=== PATIENT | male | born 1985 | race Caucasian/White ===

== ENCOUNTER 2021-07-28 11:27 | Emergency (ER) | payer MEDICAID, SELFPAY ==
[2021-07-28 11:28] VITALS: BP 191/93; PULSE 85; RESP 16; TEMP 36.3; O2SAT 97; BMI 48.7
--- NOTE | 2021-07-28 11:46 | EDS_ITS ---
HPI History of Present Illness Chief Complaint: Hyperglycemia Informant: patient Narrative Narrative: 36-year-old male presenting to the emergency department with chief complaint of hyperglycemia. Patient states that he is not a diabetic but he went for a job interview today and they checked his blood sugar and it was over 400. He notes increased thirst and frequent urination particularly at night. He denies any weight gain weight loss. He states he has had hypertension intermittently in the past. He is an occasional smoker. He does not have a primary care doctor as he just moved to town. PFSH PFS Medical History no medical history no medical history Home Medications lisinopril 20 mg PO DAILY #30 tab 07/28/21 [Rx Last Taken Unknown] metformin 500 mg PO BID #60 tab 07/28/21 [Rx Last Taken Unknown] Allergy/AdvReac Type Severity Reaction Status Date / Time No Known Allergies Allergy Verified 07/28/21 11:29 Surgical History (Updated 07/28/21 @ 11:[address] Jelani Zamudio DO) H/O shoulder surgery Social History (Updated 07/28/21 @ 11:[address] Jelani Zamudio DO) Smoking Status: Current some day smoker tobacco type: cigarettes substance use type: does not use ROS ROS ED Constitutional Constitutional ED: Denies chills, fever(s) or weight loss Eyes Eyes: Denies change in vision or diplopia ENT ENT ED: Denies ear pain, rhinorrhea or sore throat Cardiovascular Cardiovascular: Denies chest pain, orthopnea, palpitations or racing heartbeat Respiratory/Chest Respiratory/Chest: Denies cough, dyspnea or orthopnea Gastrointestinal Gastrointestinal: Denies abdominal pain, diarrhea, nausea or vomiting Genitourinary Genitourinary ED: Reports urinary frequency; Denies dysuria or hematuria Musculoskeletal Musculoskeletal: Denies arthralgias or myalgias Integumentary Denies abscess or rash Neurologic Neurologic: Denies headache(s) or weakness Psychiatric Psychiatric: Denies anxiety, depression, suicidal ideation or suicidal thoughts Endocrine Endocrinology: Reports polydipsia and polyuria; Denies polyphagia Allergic/Immunologic Allergic/Immunologic ED: Denies mouth swelling, tongue swelling or urticaria EXAM Physical Exam Const Vital Signs: 07/28/21 11:28 07/28/21 12:10 07/28/21 12:44 Temperature 97.4 F L Temperature Source Temporal Pulse Rate 85 Respiratory Rate 16 Respiratory Effort Normal Non-Labored Respiratory Pattern Normal Blood Pressure 191/93 H 170/86 H Blood Pressure Mean 125 114 Pulse Ox 97 Oxygen Delivery Method Room Air 07/28/21 12:51 Temperature Temperature Source Pulse Rate Respiratory Rate Respiratory Effort Respiratory Pattern Blood Pressure 135/90 H Blood Pressure Mean 105 Pulse Ox Oxygen Delivery Method Positive well nourished, well developed and obese General Appearance ED: well developed Nutritional Appearance: obese HEENT Reports normocephalic, head/scalp atraumatic, TM's clear and moist mucous membranes Negative for trauma Tympanic Membrane ED: Yes TM's clear Eyes PERRL and EOMs intact bilaterally Neck no lymphadenopathy, supple and no JVD Resp normal respiratory effort and clear to auscultation bilaterally Cardio regular rate, regular rhythm and no murmurs GI normal to inspection, nondistended, normoactive bowel sounds and non-tender Palpation: soft Back/Spine no CVA tenderness and normal ROM Extremity normal to inspection General Extremety ED: Negative for edema General Extremity: Negative for edema Neuro oriented x3 and CN's II-XII intact bilaterally Sensorium / Orientation: alert Motor Exam: strength 5/5 throughout Psych mental status grossly normal Mood & Affect: Negative for depressed or tearful Skin no rashes or lesions noted and no wounds MDM MDM MDM Narrative Medical decision making narrative: Anion gap is 6 BUN of 9 creatinine 0.74. His glucose is 383 liver enzymes slightly elevated with an ALT of 79 AST is 61 alk phos of 122. His hemoglobin A1c is 11. Urinalysis shows glucose but no infection and no proteinuria. Patient's blood pressures have remained elevated which is consistent with what he has told me about his prior readings. Patient will be started on Metformin 500 mg twice a day as well as lisinopril 20 mg twice a day given at least a months worth. Advised him that he will need to follow-up with primary care. Dr. Cary is next up on the list. Lab Data Attestation: I reviewed the patient's lab results. Labs: Laboratory Results - last 24 hr 07/28/21 07/28/21 07/28/21 12:05 12:05 12:05 WBC 7.6 RBC 5.01 Hgb 15.1 Hct 44.2 MCV 88.2 MCH 30.1 MCHC 34.2 RDW Std Deviation 42.5 RDW Coeff of Federico 13.2 Plt Count 186 MPV 10.8 Immature Gran % (Auto) 0.400 Neut % (Auto) 50.1 Lymph % (Auto) 40.9 [place] % (Auto) 6.2 Eos % (Auto) 2.1 Baso % (Auto) 0.3 Absolute Neuts (auto) 3.8 Absolute Lymphs (auto) 3.10 Nucleated RBC % 0 Sodium 133 L Potassium 4.2 Chloride 97 L Carbon Dioxide 30.0 Anion Gap 6 BUN 9 Creatinine 0.74 Estim Creat Clear Calc 161.99 Est GFR (MDRD) Af Amer 156 Est GFR (MDRD) Non-Af 129 BUN/Creatinine Ratio 12.2 Glucose 383 H Hemoglobin A1c 11.0 H Calcium 8.7 Total Bilirubin 0.40 Direct Bilirubin 0.11 AST 61 H ALT 79 H Alkaline Phosphatase 122 H Total Protein 7.6 Albumin 3.0 L Globulin 4.6 H Amylase 27 Lipase 121 Urine Color Urine Clarity Urine pH Ur Specific [place] Urine Protein Urine Glucose (UA) Urine Ketones Urine Occult Blood Urine Nitrite Urine Bilirubin Urine Urobilinogen Ur Leukocyte Esterase Urine RBC Urine WBC Ur Squamous Epith Cells Urine Bacteria Urine Mucus 07/28/21 12:25 WBC RBC Hgb Hct MCV MCH MCHC RDW Std Deviation RDW Coeff of Federico Plt Count MPV Immature Gran % (Auto) Neut % (Auto) Lymph % (Auto) Stevens % (Auto) Eos % (Auto) Baso % (Auto) Absolute Neuts (auto) Absolute Lymphs (auto) Nucleated RBC % Sodium Potassium Chloride Carbon Dioxide Anion Gap BUN Creatinine Estim Creat Clear Calc Est GFR (MDRD) Af Amer Est GFR (MDRD) Non-Af BUN/Creatinine Ratio Glucose Hemoglobin A1c Calcium Total Bilirubin Direct Bilirubin AST ALT Alkaline Phosphatase Total Protein Albumin Globulin Amylase Lipase Urine Color Yellow Urine Clarity Clear Urine pH 5.0 Ur Specific [place] 1.020 Urine Protein Negative Urine Glucose (UA) 1000 H Urine Ketones Negative Urine Occult Blood Negative Urine Nitrite Negative Urine Bilirubin Negative Urine Urobilinogen Normal Ur Leukocyte Esterase Negative Urine RBC 0-5 SEEN Urine WBC 0-5 SEEN Ur Squamous Epith Cells 0 SEEN Urine Bacteria 0 SEEN Urine Mucus 0 SEEN Discharge Plan Triage Chief Complaint: Hyperglycemia ED Provider: Jelani Zamudio Dx/Rx/DC Orders Clinical Impression: Diabetes mellitus, new onset, Essential hypertension Instructions: ED Diabetes- Overview, ED Hypertension New Begin Treatment, ED Diet: Diabetes Prescriptions: New metformin 500 mg tablet 500 mg PO BID Qty: 60 RF: 0 lisinopril 20 mg tablet 20 mg PO DAILY Qty: 30 RF: 0 Primary Care Provider: Care Physician,No Primary Referrals: Yuliana Chatman MD [STAFF PHYSICIAN] - As soon as possible (for internal medicine) Care Physician,No Primary [Primary Care Provider] - Disposition Disposition: Home, Self Care
[2021-07-28 12:13] LABS: Absolute Neutrophil Count 3.8 X10^3/uL (2.0-7.7); Basophil# 0.02 X10^3/uL; Basophil% 0.3 % (0-1); Eosinophil# 0.16 X10^3/uL; Eosinophils% 2.1 % (0-5); Hematocrit 44.2 % (40-54); Hemoglobin 15.1 g/dL (13.0-16.5); Lymphocyte % 40.9 % (19-41); Mean Corp Hgb Conc 34.2 g/dL (32-36); Mean Corpuscular Hgb 30.1 pg (27.0-32.0); Mean Corpuscular Volume 88.2 fL (80-94); Mean Platelet Vol. 10.8 fl (6.2-12.0); Monocyte# 0.47 X10^3/uL; Monocyte% 6.2 % (0-10); NRBC Flagged by Analyzer 0 % (0-5); Neutrophil % 50.1 % (47-70); Platelet Count 186 K/mm3 (150-450); RBC Distribution Width CV 13.2 % (11.6-14.6); RBC Distribution Width SD 42.5 fl (35.1-43.9); Red Blood Count 5.01 M/mm3 (4.6-6.2); White Blood Count 7.6 K/mm3 (4.4-11.0)
[2021-07-28 12:30] LABS: AST(SGOT) 61 U/L (15-37); Alanine Aminotransfer ALT/SGPT 79 U/L (16-61); Alkaline Phosphatase 122 U/L (45-117); Amylase 27 U/L (25-115); Anion Gap 6 (5-15); BUN 9 mg/dL (7-18); BUN/Creat Ratio 12.2 RATIO (10-20); Bilirubin, Direct 0.11 mg/dL (0.00-0.30); Calcium,Total 8.7 mg/dL (8.5-10.1); Chloride 97 mmol/L (98-107); Creatinine, Serum 0.74 mg/dL (0.70-1.30); EST Glomerular Filtration Rate 129 mL/min (>60); Est Glom Filt Rate - Afr Amer 156 mL/min (>60); Estimated Creatinine Clearance 161.99 ml/min; Globulin 4.6 g/dL (2.2-4.2); Glucose 383 mg/dL (74-106); Lipase 121 U/L (73-393); Potassium 4.2 mmol/L (3.5-5.1); Protein, Total 7.6 g/dL (6.4-8.2); Sodium Level 133 mmol/L (136-145)
[2021-07-28 12:31] LABS: Bacteria 0 SEEN /hpf (None Seen); Mucous, Urine 0 SEEN /hpf (<or=2+); Squamous Epithelial Cells - UA 0 SEEN /hpf (0-5)
[2021-07-28 12:32] LABS: Color, Urine Yellow (Yellow); Glucose, Dipstick 1000 mg/dl (Normal); Ketone-Dipstick Negative (Negative); Leukocyte Esterase-Dipstick Negative /ul (Negative); Nitrite-Dipstick Negative (Negative); Occult Blood-Urine Negative /ul (Negative); Protein-Dipstick Negative (Negative); Urine Bilirubin Dipstick Negative (Negative); Urine Clarity Clear (Clear); Urine Urobilinogen Normal (Normal)
[2021-07-28 12:41] LABS: Red Blood Cells-Urine 0-5 SEEN /hpf (0-5); White Blood Cells 0-5 SEEN /hpf (0-5)
[2021-07-28 12:44] VITALS: BP 170/86
[2021-07-28 12:51] VITALS: BP 135/90
[2021-07-28 13:27] VITALS: BP 142/78
== END 2021-07-28 23:59 | disposition home or self-care (01) ==
PROVIDERS: Emergency Provider Emergency Medicine; Visit Provider Emergency Medicine
DX: E11.65 Type 2 diabetes mellitus with hyperglycemia (principal); F17.210 Nicotine dependence, cigarettes, uncomplicated; I10 Essential (primary) hypertension; E66.9 Obesity, unspecified
CPT/HCPCS: 80048; 80076; 81001; 82150; 83036; 83690; 85025; 99283; A4216

== ENCOUNTER 2021-08-31 10:56 | Outpatient (CLI) | payer MEDICAID, SELFPAY ==
[2021-08-31 13:12] LABS: ALB/GLOB Ratio 0.8 RATIO (0.9-2.4); AST(SGOT) 39 U/L (15-37); Alanine Aminotransfer ALT/SGPT 56 U/L (16-61); Albumin, Serum 3.5 g/dL (3.2-5.0); Alkaline Phosphatase 88 U/L (45-117); Anion Gap 2 (5-15); BUN 12 mg/dL (7-18); BUN/Creat Ratio 15.9 RATIO (10-20); Calcium,Total 8.9 mg/dL (8.5-10.1); Chloride 103 mmol/L (98-107); Creatinine, Serum 0.76 mg/dL (0.70-1.30); EST Glomerular Filtration Rate 125 mL/min (>60); Est Glom Filt Rate - Afr Amer 151 mL/min (>60); Globulin 4.5 g/dL (2.2-4.2); Glucose 150 mg/dL (74-106); Potassium 3.9 mmol/L (3.5-5.1); Sodium Level 137 mmol/L (136-145); Thyroid Stim Hormone (TSH) 1.81 uIU/mL (0.358-3.74)
[2021-08-31 13:39] LABS: Microalbumin,Random Urine 31.5 mg/L (NO RANGE EST.); Microalbumin:Creatinine Ratio 11.1 mg/g CRE (<30 mg/g CRE)
== END 2021-08-31 23:59 | disposition home or self-care (01) ==
LOC: BIMLAB 10:58
PROVIDERS: PCP Nurse Practitioner Family; Referring Provider Nurse Practitioner Family; Visit Provider Nurse Practitioner Family
DX: E11.9 Type 2 diabetes mellitus without complications (principal); I10 Essential (primary) hypertension
CPT/HCPCS: 36415; 80053; 82043; 82570; 84443

== ENCOUNTER 2021-09-06 10:27 | Emergency (ER) | payer MEDICAID, SELFPAY ==
[2021-09-06 10:28] VITALS: BP 148/79; PULSE 106; RESP 17; TEMP 35.6; O2SAT 96; BMI 45.0
--- NOTE | 2021-09-06 11:13 | CT_ITS ---
STUDY: CT ABDOMEN AND PELVIS WITH CONTRAST REASON FOR EXAM: Male, 36 years old. Diffuse abdominal pain, nausea RADIATION DOSAGE (If Supplied By Facility): CTDIvol = ( 15.42 ) mGy, DLP = ( 1359.49 ) mGycm TECHNIQUE: Transaxial images were obtained from the dome of the diaphragm to the symphysis pubis with oral contrast. Oral and amp; IV Gastrografin and amp; 100mL Isovue-300 was administered. Sagittal and coronal images were reconstructed. Individualized dose optimization techniques were used for this CT. COMPARISON: None. FINDINGS: The visualized lung bases are unremarkable. The visualized portions of the heart are within normal limits. Fatty infiltration of the liver is noted with scattered simple hepatic cysts, no suspicious lesion. Normal gallbladder and extrahepatic biliary system. Normal spleen. Normal pancreas. Normal bilateral adrenal glands. No obstructive uropathy, or suspicious solid renal lesion. There is a simple 1.5 cm left renal cyst. Normal visualized stomach. Normal small intestine. Normal colon. The appendix is visualized and appears normal. Appendix seen on coronal recon image 65. Normal abdominal aorta. Normal inferior vena cava. Scattered subcentimeter mesenteric and retroperitoneal lymph nodes suggest mesenteric lymphadenitis. Normal urinary bladder. There are prostatic calcifications. Normal abdominal wall. Normal osseous structures. CT/Abdomen/Pelvis WITH Contrast IMPRESSION: Fatty liver, no suspicious solid renal lesion. There are scattered simple hepatic cysts, no specific follow-up needed. Simple left renal cyst, no specific follow-up needed. No free intraperitoneal fluid, air, or suspicious adenopathy, scattered subcentimeter mesenteric, retroperitoneal and inguinal lymphadenopathy. Normal appendix visualized Electronically Signed: Amarjit Alfonso MD at 13:47 EDT ,
--- NOTE | 2021-09-06 11:23 | EDS_ITS ---
HPI HPI - GI History of Present Illness Chief Complaint: Abd Pain Informant: patient Abdominal Pain/Flank Pain Onset: Days (2) Context: Gradual Onset Timing: Intermittent Quality: Cramping and Sharp Location: Epigastric and RUQ Worsened by: Food Relieved by: Nothing Nausea/Vomiting/Emesis GI Symptom: Positive for Nausea and Vomiting Quality: Negative for Coffee ground and Hematemesis Episodes: 1 Diarrhea/Melena/Hematochezia GI Symptom: Positive for Diarrhea; Negative for Melena and Hematochezia Stool Quality: Positive for Watery Associated Symptoms Associated Symptoms: Negative for Dysuria, Frequency and Hematuria Narrative Narrative: Patient presents with abdominal pain that has been constant for the past 2 days. Patient states pain is over the upper abdomen. Patient describes the pain as sharp and cramping. Patient states it is worse after eating. Patient states every time he eats he has diarrhea. Patient states he had one episode of vomiting. Patient admits to some nausea and decreased appetite. Patient denies any hematemesis or coffee-ground emesis. Patient states his diarrhea has been watery. Patient denies any melena or hematochezia. Patient denies any dysuria or hematuria. [facility] Medical History Asthma Chronic low back pain HTN (hypertension) Seasonal allergies Type 2 diabetes mellitus Home Medications blood-glucose meter #1 ea 08/03/21 [Rx Last Taken Unknown] blood pressure monitor #1 ea 08/04/21 [Rx Last Taken Unknown] blood sugar diagnostic #100 ea 08/31/21 [Rx Last Taken Unknown] lancets 28 gauge #100 ea 08/31/21 [Rx Last Taken Unknown] dulaglutide 1.5 mg/0.5 mL subcutaneous pen injector 1.5 mg SUBCUT QWEEK 90 Days #6.5 ml 09/01/21 [Rx Last Taken Unknown] lidocaine 5 % topical patch 1 patch TOPICAL DAILY #30 ea 09/01/21 [Rx Last Taken Unknown] lisinopril 40 mg tablet 40 mg PO DAILY #90 tab 09/01/21 [Rx Last Taken Unknown] meloxicam 15 mg tablet 15 mg PO DAILY PRN #30 tab 09/01/21 [Rx Last Taken Unknown] metformin 500 mg PO DAILY 09/06/21 [History Last Taken Unknown] omeprazole 20 mg PO DAILY #30 capsule 09/06/21 [Rx Last Taken Unknown] Allergy/AdvReac Type Severity Reaction Status Date / Time No Known Allergies Allergy Verified 09/06/21 10:27 Family History Mother Diabetes Grandfather Diabetes Grandmother Diabetes Other Anxiety Arthritis Asthma Breast cancer CVA (cerebral vascular accident) Depression Hypertension Surgical History H/O shoulder surgery Social History Smoking Status: Current some day smoker tobacco type: cigarettes alcohol intake: never substance use type: does not use what type of physical activity do you participate in: none ROS ROS ED Constitutional Constitutional ED: Denies chills or fever(s) Eyes Eyes: Denies blurry vision or change in vision ENT ENT ED: Denies rhinorrhea or sore throat Cardiovascular Cardiovascular: Denies chest pain or palpitations Respiratory/Chest Respiratory/Chest: Denies cough or dyspnea Gastrointestinal Gastrointestinal: Reports abdominal pain, diarrhea, nausea and vomiting Genitourinary Genitourinary ED: Denies dysuria or hematuria Musculoskeletal Musculoskeletal: Reports back pain; Denies neck pain Integumentary Reports rash; Denies abscess Neurologic Neurologic: Denies headache(s) or weakness Allergic/Immunologic Allergic/Immunologic ED: Denies mouth swelling or urticaria EXAM Physical Exam Const Vital Signs: 09/06/21 10:28 09/06/21 11:56 09/06/21 14:00 Temperature 96.1 F L Temperature Source Temporal Pulse Rate 106 H 90 77 Respiratory Rate 17 18 16 Blood Pressure 148/79 H 146/88 H 115/53 L Blood Pressure Mean 102 107 73 Pulse Ox 96 99 96 Oxygen Delivery Method Room Air Room Air Room Air Positive well nourished, well developed and obese General Appearance ED: well developed and NAD Nutritional Appearance: obese HEENT Reports moist mucous membranes Neck supple and no JVD Resp normal respiratory effort and clear to auscultation bilaterally Cardio regular rate, regular rhythm and no murmurs GI normal to inspection, nondistended, normoactive bowel sounds and non-distended Auscultation: normoactive bowel sounds Palpation: soft and tender epigastric and RUQ; Negative for guarding or rebound tenderness present Extremity normal to inspection General Extremety ED: Negative for edema or tenderness General Extremity: Negative for edema Neuro oriented x3, CN's II-XII intact bilaterally and no sensory deficits noted Sensorium / Orientation: alert Motor Exam: strength 5/5 throughout Psych mental status grossly normal Skin no rashes or lesions noted MDM MDM MDM Narrative Medical decision making narrative: Patient was given IV fluids, morphine, and Zofran. CBC was within normal limits. Comprehensive metabolic profile was obtained and was within normal limits. Lipase was normal. Urinalysis shows leukocyte esterase of 25 with 5-10 white blood cells. There were no bacteria noted. Nitrates are negative. CT scan of the abdomen pelvis was obtained. There is fatty liver noted. There is no suspicious lesion noted. There are a few hepatic cysts. There is a left renal cyst. There is no other acute abnormality noted. The appendix was visualized and is normal. This was interpreted by the radiologist and reviewed by myself. Patient was feeling better on reevaluation. Patient was advised of his findings. Patient was given a prescription for omeprazole. Patient was instructed to follow-up with his primary care physician in 5 to 7 days for further evaluation. Patient unders tood and was agreeable with the plan. All questions were answered. Lab Data Attestation: I reviewed the patient's lab results. Labs: Laboratory Results - last 24 hr 09/06/21 09/06/21 09/06/21 11:40 11:40 11:45 WBC 10.9 RBC 5.12 Hgb 15.3 Hct 46.3 MCV 90.4 MCH 29.9 MCHC 33.0 RDW Std Deviation 42.4 RDW Coeff of Federico 12.9 Plt Count 222 MPV 10.9 Immature Gran % (Auto) 0.300 Neut % (Auto) 67.4 Lymph % (Auto) 23.3 [place] % (Auto) 7.3 Eos % (Auto) 1.5 Baso % (Auto) 0.2 Absolute Neuts (auto) 7.3 Absolute Lymphs (auto) 2.53 Nucleated RBC % 0 Sodium 136 Potassium 3.8 Chloride 106 Carbon Dioxide 28.0 Anion Gap 2 L BUN 14 Creatinine 0.68 L Estim Creat Clear Calc 176.29 Est GFR (MDRD) Af Amer 171 Est GFR (MDRD) Non-Af 142 BUN/Creatinine Ratio 20.7 H Glucose 120 H Calcium 8.2 L Total Bilirubin 0.50 AST 29 ALT 46 Alkaline Phosphatase 70 Total Protein 8.1 Albumin 3.4 Globulin 4.7 H Albumin/Globulin Ratio 0.7 L Lipase 90 Urine Color Urine Clarity Urine pH Ur Specific [place] Urine Protein Urine Glucose (UA) Urine Ketones Urine Occult Blood Urine Nitrite Urine Bilirubin Urine Urobilinogen Ur Leukocyte Esterase Urine RBC Urine WBC Ur Squamous Epith Cells Urine Bacteria Urine Mucus POC Glucose 110 H 09/06/21 11:52 WBC RBC Hgb Hct MCV MCH MCHC RDW Std Deviation RDW Coeff of Federico Plt Count MPV Immature Gran % (Auto) Neut % (Auto) Lymph % (Auto) [place] % (Auto) Eos % (Auto) Baso % (Auto) Absolute Neuts (auto) Absolute Lymphs (auto) Nucleated RBC % Sodium Potassium Chloride Carbon Dioxide Anion Gap BUN Creatinine Estim Creat Clear Calc Est GFR (MDRD) Af Amer Est GFR (MDRD) Non-Af BUN/Creatinine Ratio Glucose Calcium Total Bilirubin AST ALT Alkaline Phosphatase Total Protein Albumin Globulin Albumin/Globulin Ratio Lipase Urine Color Yellow Urine Clarity Clear Urine pH 5.0 Ur Specific [place] 1.025 Urine Protein 30 H Urine Glucose (UA) Normal Urine Ketones 5 H Urine Occult Blood Negative Urine Nitrite Negative Urine Bilirubin 1 H Urine Urobilinogen Normal Ur Leukocyte Esterase 25 H Urine RBC 0 SEEN Urine WBC 5-10 SEEN Ur Squamous Epith Cells 0 SEEN Urine Bacteria 0 SEEN Urine Mucus 0 SEEN POC Glucose Radiography Diagnostic Testing: Clinical Impression(s) from Imaging Studies Abdomen/Pelvis CT 09/06/21 11:13 IMPRESSION: Fatty liver, no suspicious solid renal lesion. There are scattered simple hepatic cysts, no specific follow-up needed. Simple left renal cyst, no specific follow-up needed. No free intraperitoneal fluid, air, or suspicious adenopathy, scattered subcentimeter mesenteric, retroperitoneal and inguinal lymphadenopathy. Normal appendix visualized Electronically Signed: Amarjit Alfonso MD at 13:47 EDT Reading Location ID and State: [facility] / [place] , Service support , Discharge Plan Triage Chief Complaint: Abd Pain ED Provider: Rene Mojica Dx/Rx/DC Orders Clinical Impression: Abdominal pain Instructions: ED Abdominal Pain Unkn Cause Male... Prescriptions: New omeprazole [omeprazole] 20 MG capsule 20 mg PO DAILY Qty: 30 RF: 0 No Action (DME) blood-glucose meter [FreeStyle System Kit] Kit See Rx Instructions .ROUTE .MEDSUPPLY Qty: 1 RF: 0 (DME) blood pressure monitor [Blood Pressure Kit] Kit See Rx Instructions .ROUTE .MEDSUPPLY Qty: 1 RF: 0 (DME) lancets [FreeStyle Lancets] 28 gauge misc See Rx Instructions .ROUTE .MEDSUPPLY Qty: 100 RF: 3 (DME) FreeStyle Test Strip See Rx Instructions .ROUTE .MEDSUPPLY Qty: 100 RF: 3 lidocaine 5 % adhesive patch,medicated 1 patch topical DAILY Qty: 30 RF: 1 metformin 500 mg tablet 500 mg PO DAILY RF: 0 Trulicity 1.5 mg/0.5 mL pen injector 1.5 mg subcut QWEEK 90 Days Qty: 6.5 RF: 1 lisinopril 40 mg tablet 40 mg PO DAILY Qty: 90 RF: 1 meloxicam 15 mg tablet 15 mg PO DAILY PRN (Reason: low back pain) Qty: 30 RF: 1 Primary Care Provider: Jori Saeed NP Referrals: Jori Saeed NP, CONSULTING PRACTICE DIRECTOR-C [Primary Care Provider] - 3-5 Days Disposition Disposition: Home, Self Care
[2021-09-06 11:46] LABS: Absolute Lymphocyte Count 2.53 X10^3/uL (0.83-4.51); Absolute Neutrophil Count 7.3 X10^3/uL (2.0-7.7); Basophil# 0.02 X10^3/uL; Basophil% 0.2 % (0-1); Eosinophil# 0.16 X10^3/uL; Eosinophils% 1.5 % (0-5); Hematocrit 46.3 % (40-54); Hemoglobin 15.3 g/dL (13.0-16.5); Lymphocyte # 2.53 X10^3/ul (0.83-4.51); Lymphocyte % 23.3 % (19-41); Mean Corpuscular Hgb 29.9 pg (27.0-32.0); Mean Corpuscular Volume 90.4 fL (80-94); Mean Platelet Vol. 10.9 fl (6.2-12.0); Monocyte# 0.79 X10^3/uL; Monocyte% 7.3 % (0-10); NRBC Flagged by Analyzer 0 % (0-5); Neutrophil # 7.33 X10^3/uL (2.7-7.7); Neutrophil % 67.4 % (47-70); Platelet Count 222 K/mm3 (150-450); RBC Distribution Width CV 12.9 % (11.6-14.6); RBC Distribution Width SD 42.4 fl (35.1-43.9); Red Blood Count 5.12 M/mm3 (4.6-6.2); White Blood Count 10.9 K/mm3 (4.4-11.0)
[2021-09-06 11:51] LABS: Bedside Glucose 110 mg/dL (74-106)
[2021-09-06] MEDS: Ondansetron 4 MG/2 ML Vial IV (11:54)
[2021-09-06] MEDS: 0.9% Normal Saline 1,000 ML 1000 ML IV (11:54)
[2021-09-06] MEDS: Morphine 4 MG/ML Syringe IV (11:54)
[2021-09-06 11:56] VITALS: BP 146/88; PULSE 90; RESP 18; O2SAT 99
[2021-09-06 11:58] LABS: Bacteria 0 SEEN /hpf (None Seen); Mucous, Urine 0 SEEN /hpf (<or=2+); Red Blood Cells-Urine 0 SEEN /hpf (0-5); Squamous Epithelial Cells - UA 0 SEEN /hpf (0-5)
[2021-09-06 11:59] LABS: Color, Urine Yellow (Yellow); Glucose, Dipstick Normal (Normal); Ketone-Dipstick 5 mg/dl (Negative); Leukocyte Esterase-Dipstick 25 /ul (Negative); Nitrite-Dipstick Negative (Negative); Occult Blood-Urine Negative /ul (Negative); Protein-Dipstick 30 mg/dl (Negative); Specific Gravity, Urine 1.025 (1.002-1.030); Urine Bilirubin Dipstick 1 mg/dL (Negative); Urine Clarity Clear (Clear); Urine Urobilinogen Normal (Normal)
[2021-09-06 12:03] LABS: ALB/GLOB Ratio 0.7 RATIO (0.9-2.4); AST(SGOT) 29 U/L (15-37); Alanine Aminotransfer ALT/SGPT 46 U/L (16-61); Albumin, Serum 3.4 g/dL (3.2-5.0); Alkaline Phosphatase 70 U/L (45-117); Anion Gap 2 (5-15); BUN 14 mg/dL (7-18); BUN/Creat Ratio 20.7 RATIO (10-20); Calcium,Total 8.2 mg/dL (8.5-10.1); Chloride 106 mmol/L (98-107); Creatinine, Serum 0.68 mg/dL (0.70-1.30); EST Glomerular Filtration Rate 142 mL/min (>60); Est Glom Filt Rate - Afr Amer 171 mL/min (>60); Estimated Creatinine Clearance 176.29 ml/min; Globulin 4.7 g/dL (2.2-4.2); Glucose 120 mg/dL (74-106); Lipase 90 U/L (73-393); Potassium 3.8 mmol/L (3.5-5.1); Protein, Total 8.1 g/dL (6.4-8.2); Sodium Level 136 mmol/L (136-145)
[2021-09-06 12:04] LABS: White Blood Cells 5-10 SEEN /hpf (0-5)
[2021-09-06 14:00] VITALS: BP 115/53; PULSE 77; RESP 16; O2SAT 96
== END 2021-09-06 16:05 | disposition home or self-care (01) ==
PROVIDERS: Emergency Provider Emergency Medicine; PCP Nurse Practitioner Family; Visit Provider Emergency Medicine
DX: R10.9 Unspecified abdominal pain (principal); E11.9 Type 2 diabetes mellitus without complications; R11.2 Nausea with vomiting, unspecified; I10 Essential (primary) hypertension; K76.0 Fatty (change of) liver, not elsewhere classified; E66.9 Obesity, unspecified; N28.1 Cyst of kidney, acquired; R19.7 Diarrhea, unspecified; K76.89 Other specified diseases of liver; J45.909 Unspecified asthma, uncomplicated; M54.50 Low back pain, unspecified; G89.29 Other chronic pain; F17.210 Nicotine dependence, cigarettes, uncomplicated; Z79.1 Long term (current) use of non-steroidal anti-inflammatories (NSAID); Z79.84 Long term (current) use of oral hypoglycemic drugs; Z79.899 Other long term (current) drug therapy
CPT/HCPCS: 74177; 80053; 81001; 82962; 83690; 85025; 96361; 96374; 96375; 99283; Q9967; A4216; J2405

== ENCOUNTER 2022-02-24 19:11 | Emergency (ER) | payer OTHER, MEDICAID, SELFPAY ==
[2022-02-24 19:11] VITALS: BP 158/90; PULSE 75; RESP 14; TEMP 36.8; O2SAT 99; BMI 46.2
--- NOTE | 2022-02-24 19:22 | RAD_ITS ---
STUDY: XR Shoulder Min 2 Views REASON FOR EXAM: Male, 36 years old. 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 generalized left shoulder pain with movement TECHNIQUE: XR Shoulder Min 2 Views LEFT COMPARISON: None. FINDINGS: Normal glenohumeral articulation. Normal acromioclavicular joint. Normal acromion. Normal humeral head and visualized proximal humerus. The soft tissue structures are unremarkable. Normal visualized pulmonary apex. RAD/Shoulder min 2 Views IMPRESSION: There are no acute findings of the shoulder. Electronically Signed: Adalid Bernal MD at 19:42 EDT ,
--- NOTE | 2022-02-24 20:20 | RAD_ITS ---
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 upper back pain TECHNIQUE: Frontal, lateral and swimmer''s views of the thoracic spine. This report was created using [employer] technology. COMPARISON: None. FINDINGS: VERTEBRAE: There is endplate spondylosis of the vertebral body. Preserved vertebral body height. No fracture. Preservation of the normal thoracic kyphosis. No significant facet arthropathy. DISC SPACES: Unremarkable. Disc spaces are maintained. RAD/Thoracic Spine 3 Views IMPRESSION: There is endplate spondylosis of the vertebral body. Electronically Signed: Adalid Bernal MD at 20:51 EDT ,
--- NOTE | 2022-02-24 20:24 | EX.ED.GENINJ ---
HPI History of Present Illness Chief Complaint: Back Informant: patient and spouse/S.O. Narrative Narrative: Presents for evaluation injury occurring at work around 6 PM. 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 There is a crate on there. He was hit in the left shoulder fell down onto his back. No head injuries. Pain in his upper mid back and left shoulder. Denies history of gastric ulcers or kidney injury. No anticoagulation medicines. He is sent in from nursing from facility for evaluation. No lower extremity pain. [id number]. [facility] Medical History Asthma Chronic low back pain HTN (hypertension) Seasonal allergies Type 2 diabetes mellitus Home Medications blood-glucose meter (FreeStyle System Kit) #1 ea 08/03/21 [Rx Last Taken Unknown] blood pressure monitor (Blood Pressure Kit) #1 ea 08/04/21 [Rx Last Taken Unknown] blood sugar diagnostic (FreeStyle Test strips) #100 ea 08/31/21 [Rx Last Taken Unknown] lancets 28 gauge (FreeStyle Lancets) #100 ea 08/31/21 [Rx Last Taken Unknown] lidocaine 5 % topical patch 1 patch topical DAILY #30 ea 09/01/21 [Rx Last Taken Unknown] lisinopril 40 mg tablet 40 mg PO DAILY #90 tabs 09/01/21 [Rx Last Taken Unknown] meloxicam 15 mg tablet 15 mg PO DAILY PRN low back pain #30 tabs 09/01/21 [Rx Last Taken Unknown] omeprazole 20 mg capsule,delayed release 20 mg PO DAILY #30 CAPSULES 09/06/21 [Rx Last Taken Unknown] dulaglutide 1.5 mg/0.5 mL subcutaneous pen injector (Trulicity) 1.5 mg (0.5 mL) subcut QWEEK 90 days #6.5 mL 10/08/21 [Rx Last Taken Unknown] Allergy/AdvReac Type Severity Reaction Status Date / Time No Known Allergies Allergy Verified 02/24/22 19:11 Family History Mother Diabetes Grandfather Diabetes Grandmother Diabetes Other Anxiety Arthritis Asthma Breast cancer CVA (cerebral vascular accident) Depression Hypertension Surgical History H/O shoulder surgery Social History Smoking Status: Current some day smoker tobacco type: cigarettes alcohol intake: never substance use type: does not use what type of physical activity do you participate in: none ROS ROS ED Constitutional Constitutional ED: Denies chills, fever(s) or sweats Eyes Eyes: Denies change in vision ENT ENT ED: Denies dysphagia or sore throat Cardiovascular Cardiovascular: Denies chest pain, leg edema, palpitations or racing heartbeat Respiratory/Chest Respiratory/Chest: Denies cough, dyspnea or dyspnea on exertion Gastrointestinal Gastrointestinal: Denies abdominal pain, diarrhea, nausea or vomiting Genitourinary Genitourinary ED: Denies dysuria, hematuria or urinary frequency Musculoskeletal Musculoskeletal: Reports back pain, extremity pain and other Details: Left shoulder pain ; Denies neck pain Integumentary Denies rash or wounds Neurologic Neurologic: Denies headache(s), paresthesias or weakness EXAM Physical Exam Const Vital Signs: 02/24/22 19:11 Temperature 98.2 F Temperature Source Temporal Pulse Rate 75 Respiratory Rate 14 Blood Pressure 158/90 H Blood Pressure Mean 112 Pulse Ox 99 Oxygen Delivery Method Room Air Positive well nourished, well developed and obese General Appearance ED: well developed and NAD Nutritional Appearance: obese HEENT Reports moist mucous membranes normocephalic and atraumatic Eyes PERRL, EOMs intact bilaterally and conjunctivae normal General Eye ED: Yes normal appearance of both eyes Neck no lymphadenopathy and supple General: Negative for tenderness Chest Wall Chest: Negative for tenderness Resp normal respiratory effort and normal air movement Effort and Inspection: symmetric chest movement; Negative for respiratory distress Cardio regular rate, regular rhythm and no murmurs Peripheral Pulses: pulses 2+ throughout GI normal to inspection, nondistended, normoactive bowel sounds and non-tender Palpation: Negative for guarding or rebound tenderness present Back/Spine no CVA tenderness Back/Spine Narrative: Midline tenderness lower thoracic. No step-off. Extremity Extremity Narrative: Right upper extremity: Full range of motion. No deformities no tenderness. Left upper extremity: Tender proximal shoulder there is no deformities. Passive full range of motion. Skin intact. No elbow tenderness. Neuro vas intact distally. General Extremety ED: Negative for edema or tenderness General Extremity: Negative for edema Neuro oriented x3 and no sensory deficits noted Sensorium / Orientation: awake and alert Skin no rashes or lesions noted and no wounds MDM MDM MDM Narrative Medical decision making narrative: Shoulder x-ray left side 2 views obtained from triage reviewed myself read by radiology shows no acute fractures. My evaluation pain midthoracic. X-ray reviewed by myself and radiology negative for compression fractures notes endplate spondylosis of vertebral body. Patient given IM Toradol. He has ibuprofen at home. Appropriate work restrictions given. Follow-up with his occupational health at his facility. All questions were answered. Radiography Diagnostic Testing: Clinical Impression(s) from Imaging Studies Shoulder X-Ray 02/24/22 19:22 IMPRESSION: There are no acute findings of the shoulder. Electronically Signed: Adalid Bernal MD at 19:42 EDT , Thoracic Spine X-Ray 02/24/22 20:20 IMPRESSION: There is endplate spondylosis of the vertebral body. Electronically Signed: Adalid Bernal MD at 20:51 EDT , Discharge Plan Triage Chief Complaint: Back ED Provider: Goldy Ambrose Dx/Rx/DC Orders Clinical Impression: Left shoulder strain, Contusion of thoracic spine Instructions: Self-Care for Strains and Sprains, ED Back Contusion Prescriptions: No Action (DME) blood-glucose meter [FreeStyle System Kit] Kit See Rx Instructions .ROUTE .MEDSUPPLY Qty: 1 0RF Rx Instructions: check blood glucose daily for type 2 DM (DME) blood pressure monitor [Blood Pressure Kit] Kit See Rx Instructions .ROUTE .MEDSUPPLY Qty: 1 0RF Rx Instructions: Check blood pressure daily for hypertension I10 (DME) lancets [FreeStyle Lancets] 28 gauge misc See Rx Instructions .ROUTE .MEDSUPPLY Qty: 100 3RF Rx Instructions: Check blood glucose daily for type 2 DM (DME) FreeStyle Test Strip See Rx Instructions .ROUTE .MEDSUPPLY Qty: 100 3RF Rx Instructions: check blood glucose daily lidocaine 5 % adhesive patch,medicated 1 patch topical DAILY Qty: 30 1RF Rx Instructions: leave on most painful area for up to 12 hrs omeprazole [omeprazole] 20 MG capsule 20 mg PO DAILY Qty: 30 0RF lisinopril 40 mg tablet 40 mg PO DAILY Qty: 90 1RF meloxicam 15 mg tablet 15 mg PO DAILY PRN (Reason: low back pain) Qty: 30 1RF Trulicity 1.5 mg/0.5 mL pen injector 1.5 mg subcut QWEEK 90 Days Qty: 6.5 1RF Primary Care Provider: Jori Saeed NP Referrals: Jori Saeed NP, [employer]NAGER-[employer] [Primary Care Provider] - Activity Restrictions/Additional Instructions: Use ibuprofen 600 mg every 6 hours as needed for pain. Work restrictions as given. Follow-up with your [employer] health. Disposition Disposition: Home, Self Care Discharge Date/Time: 02/24/22 21:41
[2022-02-24] MEDS: Ketorolac 30 MG/ML Syringe IM (20:32)
== END 2022-02-24 21:41 | disposition home or self-care (01) ==
PROVIDERS: Emergency Provider Emergency Medicine; PCP Nurse Practitioner Family; Visit Provider Emergency Medicine
DX: S20.20XA Contusion of thorax, unspecified, initial encounter (principal); E11.9 Type 2 diabetes mellitus without complications; Z79.4 Long term (current) use of insulin; V83.7XXA Person on outside of special industrial vehicle injured in nontraffic accident, initial encounter; S46.912A Strain of unspecified muscle, fascia and tendon at shoulder and upper arm level, left arm, initial encounter; I10 Essential (primary) hypertension; Y99.0 Civilian activity done for income or pay; J45.909 Unspecified asthma, uncomplicated; G89.29 Other chronic pain; Z79.899 Other long term (current) drug therapy; F17.210 Nicotine dependence, cigarettes, uncomplicated; Y93.89 Activity, other specified; Y92.89 Other specified places as the place of occurrence of the external cause
CPT/HCPCS: 72072; 73030; 96372; 99282

== ENCOUNTER 2022-06-03 11:47 | Emergency (ER) | payer MEDICAID, SELFPAY ==
[2022-06-03 11:48] VITALS: BP 163/89; PULSE 74; RESP 14; TEMP 36.1; O2SAT 98; BMI 46.2
--- NOTE | 2022-06-03 12:49 | EX.ED.DYSGE1 ---
HPI History of Present Illness Chief Complaint: Ear Problem Informant: patient Narrative Narrative: Patient states that for the past 2 weeks he has had a cerumen impaction that he cannot hear out of the left ear and he notes tinnitus. States he has been working a bunch so he has not been able to come to the emergency department but he had some extra time on his hands today so he came to emergency. He did not make an appointment with family medicine or ENT but felt that it was more appropriate to come to emergency today. [facility] Medical History Asthma Chronic low back pain HTN (hypertension) Seasonal allergies Type 2 diabetes mellitus Home Medications blood-glucose meter (FreeStyle System Kit) #1 ea 08/03/21 [Rx Last Taken Unknown] blood pressure monitor (Blood Pressure Kit) #1 ea 08/04/21 [Rx Last Taken Unknown] blood sugar diagnostic (FreeStyle Test strips) #100 ea 08/31/21 [Rx Last Taken Unknown] lancets 28 gauge (FreeStyle Lancets) #100 ea 08/31/21 [Rx Last Taken Unknown] lidocaine 5 % topical patch 1 patch topical DAILY #30 ea 09/01/21 [Rx Last Taken Unknown] lisinopril 40 mg tablet 40 mg PO DAILY #90 tabs 09/01/21 [Rx Last Taken Unknown] meloxicam 15 mg tablet 15 mg PO DAILY PRN low back pain #30 tabs 09/01/21 [Rx Last Taken Unknown] omeprazole 20 mg capsule,delayed release 20 mg PO DAILY #30 CAPSULES 09/06/21 [Rx Last Taken Unknown] dulaglutide 1.5 mg/0.5 mL subcutaneous pen injector (Trulicity) 1.5 mg (0.5 mL) subcut QWEEK 90 days #6.5 mL 10/08/21 [Rx Last Taken Unknown] Allergy/AdvReac Type Severity Reaction Status Date / Time No Known Allergies Allergy Verified 06/03/22 11:48 Family History Mother Diabetes Grandfather Diabetes Grandmother Diabetes Other Anxiety Arthritis Asthma Breast cancer CVA (cerebral vascular accident) Depression Hypertension Surgical History H/O shoulder surgery Social History Smoking Status: Current every day smoker tobacco type: cigarettes alcohol intake: never substance use type: does not use what type of physical activity do you participate in: none ROS ROS ED Constitutional Constitutional ED: Denies chills or weight loss Eyes Eyes: Denies change in vision or diplopia ENT ENT ED: Reports ear pain and other Details: Decreased hearing and tinnitus ; Denies rhinorrhea or sore throat Cardiovascular Cardiovascular: Denies chest pain, orthopnea, palpitations or racing heartbeat Respiratory/Chest Respiratory/Chest: Denies cough, dyspnea or orthopnea Gastrointestinal Gastrointestinal: Denies abdominal pain, diarrhea, nausea or vomiting Genitourinary Genitourinary ED: Denies dysuria, hematuria or urinary frequency Musculoskeletal Musculoskeletal: Denies arthralgias or myalgias Integumentary Denies abscess or rash Neurologic Neurologic: Denies headache(s) or weakness Psychiatric Psychiatric: Denies anxiety, depression, suicidal ideation or suicidal thoughts Endocrine Endocrinology: Denies polydipsia, polyphagia or polyuria Allergic/Immunologic Allergic/Immunologic ED: Denies mouth swelling, tongue swelling or urticaria EXAM Physical Exam Const Vital Signs: 06/03/22 11:48 Temperature 97 F L Temperature Source Temporal Pulse Rate 74 Respiratory Rate 14 Blood Pressure 163/89 H Blood Pressure Mean 113 Pulse Ox 98 Oxygen Delivery Method Room Air Positive well nourished, well developed and obese General Appearance ED: well developed Nutritional Appearance: obese HEENT Reports normocephalic, head/scalp atraumatic and moist mucous membranes HEENT Narrative: Bilateral cerumen impaction Eyes PERRL and EOMs intact bilaterally Neck no lymphadenopathy, supple and no JVD Resp normal respiratory effort and clear to auscultation bilaterally Cardio regular rate, regular rhythm and no murmurs GI normal to inspection, nondistended, normoactive bowel sounds and non-tender Palpation: soft Back/Spine no CVA tenderness and normal ROM Extremity normal to inspection General Extremety ED: Negative for edema General Extremity: Negative for edema Neuro oriented x3 and CN's II-XII intact bilaterally Sensorium / Orientation: alert Motor Exam: strength 5/5 throughout Psych mental status grossly normal Mood & Affect: Negative for depressed or tearful Skin no rashes or lesions noted and no wounds MDM MDM MDM Narrative Medical decision making narrative: Debrox was placed inside the ears. Nursing provided with warm water irrigation with successful resolution of the cerumen. No tympanic membrane perforation noted. Patient will be discharged home. Discharge Plan Triage Chief Complaint: Ear Problem ED Provider: Jelani Zamudio Dx/Rx/DC Orders Clinical Impression: Type 2 diabetes mellitus, HTN (hypertension), Bilateral impacted cerumen Instructions: Impacted Earwax Prescriptions: No Action (DME) blood-glucose meter [FreeStyle System Kit] Kit See Rx Instructions .ROUTE .MEDSUPPLY Qty: 1 0RF Rx Instructions: check blood glucose daily for type 2 DM (DME) blood pressure monitor [Blood Pressure Kit] Kit See Rx Instructions .ROUTE .MEDSUPPLY Qty: 1 0RF Rx Instructions: Check blood pressure daily for hypertension I10 (DME) lancets [FreeStyle Lancets] 28 gauge misc See Rx Instructions .ROUTE .MEDSUPPLY Qty: 100 3RF Rx Instructions: Check blood glucose daily for type 2 DM (DME) FreeStyle Test Strip See Rx Instructions .ROUTE .MEDSUPPLY Qty: 100 3RF Rx Instructions: check blood glucose daily lidocaine 5 % adhesive patch,medicated 1 patch topical DAILY Qty: 30 1RF Rx Instructions: leave on most painful area for up to 12 hrs omeprazole [omeprazole] 20 MG capsule 20 mg PO DAILY Qty: 30 0RF lisinopril 40 mg tablet 40 mg PO DAILY Qty: 90 1RF meloxicam 15 mg tablet 15 mg PO DAILY PRN (Reason: low back pain) Qty: 30 1RF Trulicity 1.5 mg/0.5 mL pen injector 1.5 mg subcut QWEEK 90 Days Qty: 6.5 1RF Primary Care Provider: Jori Saeed NP Referrals: Jerod Redman MD [Med Staff - Active Staff] - As Needed (for ENT) Jori Saeed NP, [employer] [Primary Care Provider] - As Needed (for non emergency conditions) Disposition Disposition: Home, Self Care Discharge Date/Time: 06/03/22 14:26
[2022-06-03] MEDS: Carbamide Peroxide 15 ML Bottle 5 DRP OTIC (13:16)
== END 2022-06-03 14:26 | disposition home or self-care (01) ==
PROVIDERS: Emergency Provider Emergency Medicine; PCP Nurse Practitioner Family; Visit Provider Emergency Medicine
DX: H61.23 Impacted cerumen, bilateral (principal); E11.9 Type 2 diabetes mellitus without complications; Z79.4 Long term (current) use of insulin; I10 Essential (primary) hypertension; J45.909 Unspecified asthma, uncomplicated; Z79.899 Other long term (current) drug therapy; F17.210 Nicotine dependence, cigarettes, uncomplicated
CPT/HCPCS: 99283

== ENCOUNTER 2022-08-15 13:05 | Emergency (ER) | payer MEDICAID, SELFPAY ==
[2022-08-15 13:06] VITALS: BP 171/93; PULSE 101; RESP 18; TEMP 36.6; O2SAT 94; BMI 48.1
--- NOTE | 2022-08-15 13:29 | EDS_ITS ---
HPI History of Present Illness Chief Complaint: Upper Extremity Injury Informant: patient Onset/Context/Timing Current Severity: Moderate Maximum Severity: Severe Worsened by: movement, kristie w/ anything over shoulder level Relieved by: remaining still Associated Symptoms Associated Symptoms: Negative for Parasthesia, Weakness or Loss of Funtion Narrative Narrative: Patient presents saying I think I dislocated my shoulder. He has never had a shoulder dislocation in the past. He states he has been having some pinching sensation in his right shoulder blade area for the last couple days, discomfort. He states today he was lying in bed, he stretched by explaining basically extending his upper arm toward the back of his bed and he felt a pop in the posterior shoulder area, indicating periscapular. He states now it hurts to move anywhere. He is right-hand dominant. He denies any numbness or tingling distally in the hand or weakness. No pain elsewhere. Sent here from urgent care because they were not able to obtain an x-ray. [facility] Medical History Asthma Asthma Chronic low back pain HTN (hypertension) RIGO (obstructive sleep apnea) Seasonal allergies Type 2 diabetes mellitus Home Medications blood-glucose meter (FreeStyle System Kit) #1 ea 08/03/21 [Rx Last Taken Unknown] blood pressure monitor (Blood Pressure Kit) #1 ea 08/04/21 [Rx Last Taken Unknown] blood sugar diagnostic (FreeStyle Test strips) #100 ea 08/31/21 [Rx Last Taken Unknown] lancets 28 gauge (FreeStyle Lancets) #100 ea 08/31/21 [Rx Last Taken Unknown] lidocaine 5 % topical patch 1 patch topical DAILY #30 ea 09/01/21 [Rx Last Taken Unknown] albuterol sulfate 90 mcg/actuation aerosol inhaler (ProAir HFA) 1 - 2 puff inhalation Q6H PRN shortness of breath or wheezing #8.5 grams 06/21/22 [Rx Last Taken Unknown] lisinopril 20 mg tablet 20 mg PO DAILY #90 tabs 06/21/22 [Rx Last Taken Unknown] meloxicam 15 mg tablet 15 mg PO DAILY PRN low back pain #30 tabs 08/03/22 [Rx Last Taken Unknown] tirzepatide 5 mg/0.5 mL subcutaneous pen injector (Mounjaro) 5 mg (0.5 mL) subcut QWEEK #2 mL 08/03/22 [Rx Last Taken Unknown] Allergy/AdvReac Type Severity Reaction Status Date / Time No Known Allergies Allergy Verified 08/03/22 09:04 Family History Mother Diabetes Grandfather Diabetes Grandmother Diabetes Other Anxiety Arthritis Asthma Breast cancer CVA (cerebral vascular accident) Depression Hypertension Surgical History H/O shoulder surgery Social History Smoking Status: Current some day smoker tobacco type: cigarettes alcohol intake: never substance use type: does not use what type of physical activity do you participate in: none ROS ROS ED Constitutional Constitutional ED: Denies chills or fever(s) Musculoskeletal Musculoskeletal: Reports extremity pain; Denies neck pain Integumentary Denies Abrasions, rash or wounds Neurologic Neurologic: Denies paresthesias or weakness EXAM Physical Exam Const Vital Signs: 08/15/22 13:06 Temperature 97.8 F Temperature Source Temporal Pulse Rate 101 H Respiratory Rate 18 Blood Pressure 171/93 H Blood Pressure Mean 119 Pulse Ox 94 Oxygen Delivery Method Room Air Positive well nourished and well developed General Appearance ED: well developed and NAD Neck full ROM and supple Back/Spine normal ROM and normal to inspection Extremity Extremity Narrative: Obese gentleman, bulky right shoulder girdle but no deformity. No tenderness in the right clavicle, acromioclavicular joint, acromion, subacromial area, biceps long head, coracoid process. Tender throughout the right periscapular area including the rhomboids, no midline spinal tenderness. Able to flex, extend, abduct, but basically can go just shy of shoulder level in all directions and then stops due to pain. Strong distal pulses and nerve function, normal axillary nerve function. Neuro oriented x3, no focal motor deficits and no sensory deficits noted Sensorium / Orientation: alert Psych mental status grossly normal and thought process normal Skin no wounds Rashes: no rashes MDM MDM MDM Narrative Medical decision making narrative: 2 view x-ray series of the right shoulder on my interpretation is normal showing no signs of any bony injury or dislocation/subluxation. Radiology is in agreement. I reassured this patient, clinically this is all inconsistent with dislocation as well. Given that all of his symptoms are periscapular and in the rhomboids I suspect this is all muscular. If he has continued problems, I recommend outpatient orthopedic follow-up, 1-2 weeks. 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 Was given anti-inflammatories here and an oral tramadol; he already has an active meloxicam prescription that was given by his PCP 1.5 weeks ago, which is appropriate for this problem. Discharge Plan Triage Chief Complaint: Upper Extremity Injury ED Provider: Timmy Montoya Dx/Rx/DC Orders Clinical Impression: Right shoulder strain Prescriptions: Continued (DME) blood-glucose meter [FreeStyle System Kit] Kit See Rx Instructions .ROUTE .MEDSUPPLY Qty: 1 0RF Rx Instructions: check blood glucose daily for type 2 DM (DME) blood pressure monitor [Blood Pressure Kit] Kit See Rx Instructions .ROUTE .MEDSUPPLY Qty: 1 0RF Rx Instructions: Check blood pressure daily for hypertension I10 (DME) lancets [FreeStyle Lancets] 28 gauge misc See Rx Instructions .ROUTE .MEDSUPPLY Qty: 100 3RF Rx Instructions: Check blood glucose daily for type 2 DM (DME) FreeStyle Test Strip See Rx Instructions .ROUTE .MEDSUPPLY Qty: 100 3RF Rx Instructions: check blood glucose daily lidocaine 5 % adhesive patch,medicated 1 patch topical DAILY Qty: 30 1RF Rx Instructions: leave on most painful area for up to 12 hrs lisinopril 20 mg tablet 20 mg PO DAILY Qty: 90 2RF albuterol sulfate [ProAir HFA] 90 mcg/actuation HFA aerosol inhaler 1 - 2 puff inhalation Q6H PRN (Reason: shortness of breath or wheezing) Qty: 8.5 1RF Mounjaro 5 mg/0.5 mL pen injector 5 mg subcut QWEEK Qty: 2 2RF meloxicam 15 mg tablet 15 mg PO DAILY PRN (Reason: low back pain) Qty: 30 1RF Stand Alone Forms: ED Work / School Excuse Primary Care Provider: Jori Saeed NP Referrals: Mateo Emery MD [Med Staff - Active Staff] - 10-14 Days if not better Jori Saeed [employer]PERINTENDENT [employer]PERATION, [employer] [Primary Care Provider] - Disposition Disposition: Home, Self Care
--- NOTE | 2022-08-15 13:38 | RAD_ITS ---
STUDY: X-RAY - RIGHT SHOULDER REASON FOR EXAM: Male, 37 years old. Pain/injury TECHNIQUE: 2 view(s) of the shoulder. COMPARISON: None. FINDINGS: Normal glenohumeral articulation. Normal acromioclavicular joint. Normal acromion. Normal humeral head and visualized proximal humerus. The soft tissue structures are unremarkable. Normal visualized pulmonary apex. RAD/Shoulder min 2 Views IMPRESSION: Normal x-ray examination of the shoulder. Electronically Signed: Mazin Lora MD at 13:59 EST ,
[2022-08-15] MEDS: Ketorolac 60 MG/2 ML Vial IM (14:13)
[2022-08-15] MEDS: traMADol 50 MG Tablet PO (15:05)
== END 2022-08-15 15:17 | disposition home or self-care (01) ==
PROVIDERS: Emergency Provider Emergency Medicine; PCP Nurse Practitioner Family; Visit Provider Emergency Medicine
DX: S46.911A Strain of unspecified muscle, fascia and tendon at shoulder and upper arm level, right arm, initial encounter (principal); E11.9 Type 2 diabetes mellitus without complications; X50.9XXA Other and unspecified overexertion or strenuous movements or postures, initial encounter; I10 Essential (primary) hypertension; J45.909 Unspecified asthma, uncomplicated; F17.210 Nicotine dependence, cigarettes, uncomplicated; Z79.1 Long term (current) use of non-steroidal anti-inflammatories (NSAID); Z79.85 Long-term (current) use of injectable non-insulin antidiabetic drugs; Z79.899 Other long term (current) drug therapy
CPT/HCPCS: 73030; 96372; 99283; A4216

== ENCOUNTER → 2022-09-02 | Outpatient (CLI) | payer MEDICAID, SELFPAY | END | disposition home or self-care (01) | LOC: SL 19:54 | PROVIDERS: PCP Nurse Practitioner Family; Visit Provider Nurse Practitioner Family | DX: G47.33 Obstructive sleep apnea (adult) (pediatric) (principal) | CPT/HCPCS: 95810 ==

== ENCOUNTER → 2022-12-20 | Outpatient (CLI) | payer MEDICAID, SELFPAY ==
[2022-12-20 12:49] LABS: Absolute Lymphocyte Count 2.69 X10^3/uL (0.83-4.51); Absolute Neutrophil Count 4.7 X10^3/uL (2.0-7.7); Basophil# 0.02 X10^3/uL; Basophil% 0.2 % (0-1); Eosinophil# 0.15 X10^3/uL; Eosinophils% 1.8 % (0-5); Hematocrit 44.1 % (40-54); Hemoglobin 14.3 g/dL (13.0-16.5); Lymphocyte # 2.69 X10^3/ul (0.83-4.51); Lymphocyte % 32.9 % (19-41); Mean Corp Hgb Conc 32.4 g/dL (32-36); Mean Corpuscular Hgb 29.2 pg (27.0-32.0); Mean Platelet Vol. 11.8 fl (6.2-12.0); Monocyte% 7.3 % (0-10); NRBC Flagged by Analyzer 0 % (0-5); Neutrophil # 4.69 X10^3/uL (2.7-7.7); Neutrophil % 57.6 % (47-70); Platelet Count 232 K/mm3 (150-450); RBC Distribution Width CV 13.2 % (11.6-14.6); RBC Distribution Width SD 43.1 fl (35.1-43.9); White Blood Count 8.2 K/mm3 (4.4-11.0)
[2022-12-20 13:56] LABS: ALB/GLOB Ratio 0.7 RATIO (0.9-2.4); AST(SGOT) 28 U/L (15-37); Alanine Aminotransfer ALT/SGPT 27 U/L (16-61); Albumin, Serum 3.3 g/dL (3.2-5.0); Alkaline Phosphatase 74 U/L (45-117); Anion Gap 4 (5-15); BUN 16 mg/dL (7-18); BUN/Creat Ratio 19.7 RATIO (10-20); Calcium,Total 8.9 mg/dL (8.5-10.1); Chloride 105 mmol/L (98-107); Cholesterol 140 mg/dL (200); Creatinine, Serum 0.81 mg/dL (0.70-1.30); EST Glomerular Filtration Rate 114 mL/min (>60); Est Glom Filt Rate - Afr Amer 138 mL/min (>60); Globulin 4.5 g/dL (2.2-4.2); Glucose 98 mg/dL (74-106); High Density Lipoprotein 25 mg/dL; Potassium 4.1 mmol/L (3.5-5.1); Protein, Total 7.8 g/dL (6.4-8.2); Sodium Level 137 mmol/L (136-145); Thyroid Stim Hormone (TSH) 2.36 uIU/mL (0.358-3.74); Triglycerides 157 mg/dL; Very Low Density Lipoprotein 31 mg/dL (5-40)
[2022-12-20 15:12] LABS: Microalbumin,Random Urine 32.3 mg/L (NO RANGE EST.); Microalbumin:Creatinine Ratio 11.9 mg/g CRE (<30 mg/g CRE)
== END | disposition home or self-care (01) ==
LOC: BIMLAB 10:01
PROVIDERS: PCP Nurse Practitioner Family; Referring Provider Nurse Practitioner Family; Visit Provider Nurse Practitioner Family
DX: I10 Essential (primary) hypertension (principal); E11.9 Type 2 diabetes mellitus without complications
CPT/HCPCS: 36415; 80053; 80061; 82043; 82570; 84443; 85025